=== PATIENT | female | born 1995 | race Caucasian/White ===

== ENCOUNTER 2025-01-12 09:22 | Emergency (ER) | payer OTHER, SELFPAY ==
--- OUTSIDE RECORDS SUMMARY | 2025-01-12 09:24 | XMS_ITS | Clinical Summary ---
Author Organization [employer] Address [address] [address] Care Team Providers Care Chimney Builder Brick Name Role Phone Needs Pcp, Assignment Primary Care Provider [phone] Source Comments You are receiving this document as you are listed as the primary care provider,follow-up provider, or the patient has been referred to you for consultation.This is in compliance with the Medicare and[facility] Cent[facility]aid EHR Incentive Program,which states Providers who transition their patient to another setting of careor provider of care or refers their patient to another provider of care shouldprovide summary care record for each transition of care or referral. [employer] Allergies Active Allergy Reactions Criticality Noted Date Comments Suzie (Diagnostic) Respiratory Distress High 2016 Denied having respiratory arrest, but stated it was respiratory distress Metoclopramide Anxiety 03/28/2017 Medications * This document contains information received from the source organization and may not represent a complete record from that organization. cholecalciferol (VITAMIN D3) 06490 UNITS capsule Take 1 Cap by mouth once every week. 4 Cap 7 Active Additional Information Patient not taking.Reported on 07/18/2017 multivitamin (THERAGRAN) tablet Take 1 Tab by mouth daily. 30 Tab 11 7 Active docusate sodium (COLACE) 100 MG capsuleIndicati ons:Alcohol use disorder, moderate, dependence (HRC) Take 1 Cap by mouth two times daily as needed. 100 Cap 6 7 Active traZODone (DESYREL) 50 MG tablet Take 1 Tab by mouth at bedtime as needed for Sleep. 30 Tab 3 7 Active Etonogestrel-Et hinyl Estradiol (NUVARING) 0.12-0.015 MG/24HR vaginal ring Insert 1 Each vaginally . Insert vaginally and leave in place for 3 consecutive weeks, then remove for 1 week. Active FLUoxetine (PROZAC) 40 MG capsule Take 2 Caps by mouth daily. 60 Cap 3 7 Active busPIRone (BUSPAR) 10 MG tablet Take 2 Tabs by mouth three times daily before meals. 180 Tab 3 7 Active amphetamine-dex troamphetamine (ADDERALL XR) 15 MG 24 hour release capsule Take 1 Cap by mouth daily. 30 Cap 7 Active Active Problems Problem Noted Date Diagnosed Date ADHD (attention deficit hype ractivity disorder), combined type 06/07/2017 Alcohol use disorder, moderate, dependence 04/28 PTSD (post-traumatic stress disorder) 04/25/2017 Bulimia nervosa 04/04/2017 Obesity (BMI 30.0-34.9) 04/04/2017 Moderate episode of recurrent major depressive d isorder 04/04/2017 MEGAN (generalized anxiety disorder) 04/04/2017 Laxative abuse 04/04/2017 Overview (07/05/2017): Laxative abuse - magnesium Vitamin D deficiency 04/04/2017 Resolved Problems Problem Noted Date Diagnosed Date Resolved Date Sprain of hand 09/14/2005 01/28/2007 Overview (07/05/2017): LW Onset: [id number] ; Sprain Hand Encounters Date Type Department Care Team Description 10/28/2024 nathaniel Jacob [address] [place] [address] from Last 3 Months Family History Medical History Relation Name Comments Alcohol/Drug Abuse Father Anxiety Father Bipolar Disorder Father Cancer, Other Father Depression Father Migraines Father Schizophrenia Father Suicide Father Alcohol/Drug Abuse Mother Bipolar Disorder Mother Depression Mother Obesity Mother Deafness Brother 1 Eczema Brother 2 Migraines Brother 3 Deafness Maternal Grandfather Cancer, Breast Maternal Grandmother Cancer, Ovary Maternal Grandmother Alcohol/Drug Abuse Paternal Grandfather Cancer, Lung Paternal Grandfather Dementia Paternal Grandfather Diabetes, Type II Paternal Grandfather Emphysema Paternal Grandfather Blindness Paternal Grandmother Cancer, Breast Paternal Grandmother Cancer, Ovary Paternal Grandmother Cataract Paternal Grandmother Domestic Violence Paternal Grandmother ADHD Sister 1 Alcohol/Drug Abuse Sister 2 Anxiety Sister 3 Bipolar Disorder Sister 4 Diabetes, Type II Sister 5 Domestic Violence Sister 6 Suicide Sister 7 Thyroid Disorder Sister 8 Relation Name Status Comments Father Mother Brother 1 Brother 2 Brother 3 Maternal Grandfather Maternal Grandmother Paternal Grandfather Paternal Grandmother Sister 1 Sister 2 Sister 3 Sister 4 Sister 5 Sister 6 Sister 7 Sister 8 Social History Tobacco Use Types Packs/Day Years Used Date Smoking Tobacco: Never Smokeless Tobacco: Never Alcohol Use Standard Drinks/Week Comments Yes 0 (1 standard drink = 0.6 oz pure alcohol) 3x per week, a glass of wine per occasion Comments No Sex and Gender Information Value Date Recorded Sex Assigned at Not on file Legal Sex Female 6:28 AM CDT Gender Identity Not on file Sexual Orientation Not on file Last Filed Vital Signs Vital Sign Reading Time Taken Comments Blood Pressure 114/74 07/18/2017 1:29 PM CDT Pulse 131 07/18/2017 1:29 PM CDT Temperature 37 C (98.6 F) 05/02/2017 5:50 AM CDT Respiratory Rate - - Oxygen Saturation 100% 08/12/2015 7:31 PM CDT Inhaled Oxygen Concentration - - Weight 94.7 kg (208 lb 12.4 oz) 07/18/2017 1:28 PM CDT Height 172.2 cm (5' 7.8) 06/13/2017 1:19 PM CDT Body Mass Index 31.94 06/13/2017 1:19 PM CDT Plan of Treatment Health Maintenance Due Date Last Done Comments Cervical Cancer Screening Due 1993 Hep C Screening (Preventive Services) 1993 DTaP/Tdap/Td (2 - Tdap) 02/05/2005 02/04/2005 HIV Screening (Preventive Services) 2009 Adult Preventive Visit 2011 HepB (1) 02/11/2012 COVID-19 Vaccine (2023-2 5 season) 2024 Influenza (#1) 2024 Zoster/Shingles (1 of 2) 2043 HPV Vaccine Addressed 01/29/2008 (Historical Completion), 09/24/2007 (Historical Completion), 07/18/2007 (Historical Completion) Overridden with the intention of not completing the topic HepA Aged Out No longer eligi ble based on patient's age to complete this topic Hib Aged Out No longer eligi ble based on patient's age to complete this topic IPV (Polio) Aged Out No longer eligi ble based on patient's age to complete this topic MCV4 Aged Out No longer eligi ble based on patient's age to complete this topic Meningococcal B Aged Out No longer el igible based on patient's age to complete this topic Pneumococcal Aged Out No longer eligi ble based on patient's age to complete this topic Advance Directives * Full Code (Latest Code Status on File) Date Activated Date Inactivated Comments 04/21/2017 1:05 PM 05/02/2017 12:52 PM Care Teams Chimney Builder Brick Relationship Specialty Start Date End Date Needs Pcp, [place] [address] PCP - General 03/23/17
--- OUTSIDE RECORDS SUMMARY | 2025-01-12 09:24 | XMS_ITS | Encounter Summary ---
Author Organization [facility] Address [address] [address] Care Team Providers Care Doll Wig Hackler Name Role Phone Needs Pcp, Assignment Primary Care Provider [phone] Encounter Details Date Type Department Care Team (Late st Contact Info) Description 10/28/2024 Miley [address] [place] [id number] Social History Tobacco Use Types Packs/Day Years [...] on file Sexual Orientation Not on file documented as of this encounter Progress Notes * FAMILY MEDICINEMODESTO PROVIDER - 10/28/2024 5:17 AM CST [facility] Treatment Plan Diagnosis Viral Upper Respiratory Infection Visit Date October 28, 2024 Judy Pena Date of : 89 Provider Mansi Gruber, Nurse Practitioner Note From Provider Pierce Kim, Thanks for using [facility]. See the attached plan. We need to get that inflammation down and mucus under control so you start feeling better. You??e on the right track with some of the over the counter medication. Let?? have you start the other tips listed too. I've included a cough capsule to use at night if needed. Warm tea, lemonade, or water with honey and lemon can also help soothe the cough. Steam, warm compresses to the sinuses and saline nasal spray can help the sinus congestion. Your symptoms should start to improve in the next 3-5 days. If they don?? please let us know. A typical viral illness lasts 10-14 days. Hope you feel better soon, [facility] Treatment Plan To get you feeling better, I recommend using specific [id number] medications to target yoursymptoms which may waste/materials exchange specialist time as your immune system fights off the virus and your body heals. Tavia sent a prescription for a cough suppressant to [facility]. Please note that the coughsuppressant should be kept out of reach as it?? safe for adults but not for children. If your symptomsare notimproving in about a week or you have questions, select Help to Request afollow-up, and we??l discuss next steps. Order(s) benzonatate 100 mg capsule Take 2 capsule oral at bedtime as needed for 10 days Note: Swallow capsules whole. Keep out of reach of children. Refills: None Sent To: [facility] [address] [place] [address] Treatment Plan Self Care Tip Topics Symptom Relief with Acetaminophen Promote Mucus Drainage Stay Hydrated Cough Relief Steam Therapy What to Expect The common cold and COVID-19 are typical examples of a VURI. Most people with VURIs experiencedifferent symptoms, which may include a low-grade fever, fatigue, sore throat, nasal congestion, sinuspressure and cough. Keep in mind that as your immune system fights off the virus, your symptoms can change and may get worsebefore they get better. Typical VURI symptoms will improve in about 7 to 10 days and fully clear upwithin 2 to 3 weeks. If your symptoms are not improving within this timeframe oryou have questions,select Help in your treatment plan to Request a follow-up, and we??l discuss nextsteps. What to Watch Out For If you need help managing the following symptoms, or they appear to be worsening, reach out to anurse practitioner by selecting Help on this treatment plan and then Request a follow-up. ??? Fever higher than 103.0 degrees Fahrenheit that doesn?? improve with medication ??? Worsening facial pain and pressure ??? Worsening throat pain ??? Worsening cough In other cases, it?? critical you get care right away. Visit an urgent care, go to an emergencycenter or call 911 immediately if you experience: ??? Difficulty breathing or speaking ??? Persistent chest pain or pressure ??? Wheezing ??? Severe constant dizziness or feeling too weak to stand My Conditions, Orders, Allergies as of October 28, 2024 Standard condition list Asthma ADHD (Attention Deficit Hyperactivity Disorder) Depression endometriosis Current orders benzonatate (benzonatate) estradiol (estradiol) Wellbutrin XL (bupropion HCl) Allergies Reglan (metoclopramide HCl), oral Dilaudid (hydromorphone), oral [facility] [employer] We are an online clinic open 05/06. If you have any questions or comments about this visit, please call or email [email or web address]. SUPERVISOR documented in this encounter Plan of Treatment Not on file documented as of this encounter Visit Diagnoses Diagnosis Acute upper respiratory infection, unspecified documented in this encounter Care Teams Doll Wig Hackler Relationship Specialty Start Date End Date Needs Pcp, Assignment [place], [place] [address] PCP - General 03/23/17 documented as of this encounter
--- OUTSIDE RECORDS SUMMARY | 2025-01-12 09:24 | XMS_ITS | Encounter Summary ---
Author Organization [facility] Address [address] [address] Care Team Providers Care House Admin Name Role Phone Needs Pcp, Assignment Primary Care Provider [phone] Encounter Details Date Type Department Care Team (Late st Contact Info) Description 06/15/2015 Scanned History External to URGENCY ROOM RECORDS Social History Tobacco Use Types Packs/Day Years Used Date Smoking Tobacco: Never Assessed Comments Unknown Sex and Gender Information Value Date Recorded Sex Assigned at Not on file Legal Sex Female 6:28 AM CDT Gender Identity Not on file Sexual Orientation Not on file documented as of this encounter Plan of Treatment Not on file documented as of this encounter Visit Diagnoses Not on filedocumented in this encounter Care Teams House Admin Relationship Specialty Start Date End Date Needs Pcp, [place] [address] PCP - General 03/23/17 documented as of this encounter
--- OUTSIDE RECORDS SUMMARY | 2025-01-12 09:24 | XMS_ITS | Clinical Summary ---
Author Organization [facility] Address [address] [place] [address] Care Team Providers Care Art Consultant Name Role Phone Unavailable Primary Care Provider Unavailabl e Source Comments Patient records contain information from all sites at [facility]. For routine questions regarding patient records, call [phone] during business hours, M-F 8:00 AM - 5:00 PM Central Time. Record requests for emergency care only can be directed to [phone] at any time.[facility] Allergies Active Allergy Reactions Criticality Noted Date Comments Adhesive Tape-Silicones Rash 12/17/2020 Skin tearing Hydromorphone Nausea Only,Shortnes s of breath (Reselect Reaction) High 02/18/2016 Metoclopramide Hcl Anxiety,Other (see comments),Shortness of breath (Reselect Reaction) High 11/15/2016 Medications multivit-minera ls/folic acid (MULTIVITAMIN GUMMIES ORAL) Active estradioL (ESTRACE) 0.1 mg/g (0.01%) vaginal creamIndication s:Menopause Surgical Insert 1 gram at bedtime for two weeks; then 1 gram at bedtime twice a week. 42.5 g 3 4 Active buPROPion XL (WELLBUTRIN XL) 300 mg 24 hr tabletIndicatio ns:Depression Major Recurrent Partial Remission (HCC) Take 1 tablet (300 mg total) by mouth every morning. 30 tablet 1 4 Active estradioL (Kathryn) 0.1 mg/24 hr patchIndication s:Menopause Surgical PLACE ONE PATCH TOPICALLY ON THE SKIN TWICE A WEEK. 24 patch 5 4 Active Family History Medical History Relation Name Comments Alcohol abuse Father Erik Depression Father Erik Psychiatric Father Erik Suicide Attempts Father Erik Completed a ttempt Breast cancer Father's Sister 1 Brandi Ovarian cancer Father's Sister 2 Cara Alcohol abuse Mother Florence Depression Mother Florence Obesity Mother Florence Alcohol abuse Paternal Grandfather Erik ADD Sister 1 Ashlyn Alcohol abuse Sister 1 Ashlyn Depression Sister 1 Ashlyn Learning disorder Sister 1 Ashlyn Obesity Sister 1 Ashlyn Other cancer Sister 1 Ashlyn Cervical Cancer Suicide Attempts Sister 1 Ashlyn Alcohol abuse Sister 2 Jolein Asthma Sister 2 Jolein Depression Sister 2 Jolein Gestational diabetes Sister 2 Jolein Obesity Sister 2 Jolein Psychiatric Sister 2 Jolein Suicide Attempts Sister 2 Jolein Relation Name Status Comments Father Erik Father's Sister 1 Brandi Father's Sister 2 Cara Mother Florence Paternal Grandfather Erik Sister 1 Ashlyn Sister 2 Jolein Social History Tobacco Use Types Packs/Day Years Used Date Smoking Tobacco: Never Smokeless Tobacco: Never Tobacco Cessation:Counseling Given: Not Answered Alcohol Use Standard Drinks/Week Comments Never 0 (1 standard drink = 0.6 oz pur e alcohol) [facility] Utilities Answer Date Recorded In the past 12 months has e [employer], gas, oil, or water [employer] threatened to shut off services in your home? No 03/07/2024 Exercise Vital Sign Answer Date Recorde d On average, how many days pe r week do you engage in moderate to strenuous exercise (like a brisk walk)? 3 days 03/07/2024 On average, how many minutes do you engage in exercise at this level? 30 min 03/07/2024 Hunger Vital Sign Answer Date Recorded Within the past 12 months, y ou worried that your food would run out before you got the money to buy more. Sometimes true Within the past 12 months, t he food you bought just didn't last and you didn't have money to get more. Never true PRAPARE - Transportation Answer Date Re corded In the past 12 months, has l ack of transportation kept you from medical appointments or from getting medications? No 02/12 In the past 12 months, has l ack of transportation kept you from meetings, work, or from getting things needed for daily living? No 03/07/2024 Nutrition Answer Date Recorded On average, how many serving s of fruits and vegetables do you eat per day (serving size is equal to 1 cup or approximately the size of a tennis ball)? 3-5 03/07/2024 Dental Answer Date Recorded Dental: Regular Dentist Yes 03/07/20 Employment Answer Date Recorded Employment status Employed and actively working without restrictions 03/07/2024 Housing Stability Answer Date Recorded What is your living situation today? I have a [facility] place to live 03/07/2024 Comments No Sex and Gender Information Value Date Recorded Sex Assigned at Female 03/07/2024 6:46 AM CDT Legal Sex Female 8:48 AM CDT Gender Identity Female 03/07/2024 6:46 AM CDT Sexual Orientation Bisexual 03/07/2024 6: 46 AM CDT Last Filed Vital Signs Vital Sign Reading Time Taken Comments Blood Pressure 109/75 04/23/2024 11:08 AM CDT Pulse 83 03/07/2024 8:55 AM CDT Temperature - - Respiratory Rate - - Oxygen Saturation - - Inhaled Oxygen Concentration - - Weight 88.1 kg (194 lb 3.6 oz) 04/23/2024 11:08 AM CDT Height - - Body Mass Index - - Plan of Treatment Health Maintenance Due Date Last Done Comments HIV Screening 1993 Hepatitis B Screening 1993 Hepatitis C Screening 1993 COVID-19 Vaccine ( season) 2024 08/03/2022, 10/26/2021, 02/28/2021, Additional history exists Influenza Vaccine (#1) 2024 , 07/26/2018, 07/19/2017 Depression Screening (Annual PHQ-2) 11/13/2024 DTaP,Tdap,and Td Vaccines (8 - Td or Tdap) 01/27/2028 01/26/2018, 07/31/2011, 04/24/1998, Additional history exists IPV Vaccines Completed 04/24/1998, 05/13, 1993 HPV Vaccines Completed 06/24/2008, 01/11, 09/24/2007, Additional history exists Pneumococcal vaccine (0-49 years) Aged Out 08/03/2017 No longer eligible based on patient's age to complete this topic Hepatitis B Vaccines Completed 11/09/2022, 1993, 1993, Additional history exists Insurance [facility]
--- OUTSIDE RECORDS SUMMARY | 2025-01-12 09:24 | XMS_ITS | Encounter Summary ---
Author Organization [facility] Address [address] [address] Care Team Providers Care Injection Specialist Name Role Phone Needs Pcp, Assignment Primary Care Provider [phone] Encounter Details Date Type Department Care Team (Late st Contact Info) Description 06/15/2015 Emergency Room External to [facility] ABD PAIN Social History Tobacco Use Types Packs/Day Years [...] on filedocumented in this encounter Care Teams Injection Specialist Relationship Specialty Start Date End Date Needs Pcp, [place] [address] PCP - General 03/23/17 documented as of this encounter
--- OUTSIDE RECORDS SUMMARY | 2025-01-12 09:24 | XMS_ITS | Encounter Summary ---
Author Organization [facility] Address [address] [address] Care Team Providers Care Physician Advisor Name Role Phone Needs Pcp, Assignment Primary Care Provider [phone] Encounter Details Date Type Department Care Team (Late st Contact Info) Description 06/14/2015 Emergency Room External to [facility] SUPRAPUBIC PAIN AND VAGINAL PROBLEM Social History Tobacco Use Types Packs/Day Years [...] on filedocumented in this encounter Care Teams Physician Advisor Relationship Specialty Start Date End Date Needs Pcp, [place] [address] PCP - General 03/23/17 documented as of this encounter
--- OUTSIDE RECORDS SUMMARY | 2025-01-12 09:24 | XMS_ITS | Clinical Summary ---
Author Organization [employer] [facility] [employer] [facility] Address [facility] [place] [address] Care Team Providers Care Merchandising Consultant Name Role Phone Alicia Lawton MD Unavailable [phone] Amanda Marina Primary Care Provider [phone] Allergies Active Allergy Reactions Criticality Noted Date Comments Adhesive Tape-Silicones Rash 12/17/2020 Skin tearing Hydromorphone Shortness Of Breath,Nausea Only High 02/18/2016 Metoclopramide Hcl Anxiety,Shortness Of Breath High 11/15/2016 Medications dextroamphetamine- amphetamine (ADDERALL) 20 mg tablet Take 20 mg by mouth 2 times daily 10/03/20 20 Active cloNIDine HCL (CATAPRES) 0.1 mg tablet Take 1 tablet by mouth at bedtime. 11/14/19 21 Active buPROPion (WELLBUTRIN XL) 150 mg Extended-Release tablet Take 1 Tablet by mouth once daily. Take with 300mg tab for a total of 450mg daily 07/15/20 22 Active busPIRone (BUSPAR) 30 mg tablet Take 1 Tablet by mouth two times daily. 07/15/20 22 Active buPROPion (WELLBUTRIN XL) 300 mg Extended-Release tablet Take 1 Tablet (300 mg) by mouth once daily. Take with the 150 mg. Total daily dose 450 mg. 0 08/03/20 22 Active albuterol HFA (PRO-AIR; VENTOLIN; PROVENTIL) 90 mcg/actuation inhalerIndications :Mild intermittent asthma without complication INHALE 1 TO 2 PUFFS BY MOUTH EVERY 4 HOURS NEEDED FOR SHORTNESS OF BREATH 8.5 g 09/29/20 23 Active buPROPion (WELLBUTRIN XL) 150 mg Extended-Release tablet Take by mouth. 09/22/20 22 Active ondansetron (ZOFRAN ODT) 4 mg disintegrating tabletIndications: Nausea Place 1 Tablet (4 mg) on the tongue every 8 hours if needed for Nausea/Vomiting. 15 Tablet 02/23/20 24 Active acetaminophen (TYLENOL) 325 mg tabletIndications: Acute post-operative pain Take 2 Tablets (650 mg) by mouth every 4 hours if needed (mild pain). Max acetaminophen dose: 4000mg in 24 hrs. 30 Tablet 02/24/20 24 Active oxyCODONE (ROXICODONE) 5 mg immediate release tabletIndications: Acute post-operative pain Take 1-2 Tablets (5-10 mg) by mouth every 4 hours if needed for Pain. 12 Tablet 02/24/20 24 Active ibuprofen (ADVIL; MOTRIN) 200 mg tabletIndications: Acute post-operative pain Take 2-4 Tablets (400-800 mg) by mouth every 6 hours if needed for Pain (mild pain). 100 Tablet 02/24/20 24 Active norethin mari-eth estrad-fe, 1-20 mg-mcg, (LOESTRIN FE 12/02; JUNEL FE 12/02) tabletIndications: Surgical menopause Take one tablet daily. Skip the placebo pills 28 Tablet 4 02/24/20 24 Active Active Problems Problem Noted Date Diagnosed Date PTSD (post-traumatic stress disorder) 08/03/2022 Depression 01/14/2010 Overview (03/30/2011): Hospitalized in 03/2011 due to ativan OD and SI ADHD (attention deficit hyperactivity disorder) 01/14/2010 Mild intermittent asthma without complication Anxiety 01/14/2010 Resolved Problems Problem Noted Date Diagnosed Date Resolved Date Bulimia nervosa 08/03/2022 10/19/2023 Overview (08/03/2022): Went to [place] for treatment, 2017. Now in remission. Routine health maintenance 04/26/2011 0 08/03/2022 UTI in , antepartum , second trimester 08/03/2022 Immunizations Name Administration Dates Next Due COVID-19 vaccine (Giveo-Bio NTech 30mcg/0.3mL) 12YO+ BIVALENT PF, MDV 08/03/2022 DTP 04/24/1998, 4,1993,06/15,1993 Hepatitis B, Unspecified 1993,1993,0 1993 Human Papilloma Virus Vaccine 06/24/2008 ,01/29/2008,09/24/2007,07/18 Influenza Virus, Unspecified 07/19/2017 Influenza, IIV4 08/03/2022,07/26/2018 Influenza, IIV4 (=>6mos) MDV 07/19/2017 MMR 04/13/2018,04/24/1998,05/23/1994 Meningococcal Vaccine (Menomune) 01/29/2008 Pneumococcal Poly,23-Valent (Pneumovax) 08/03/2017 Polio Virus, Unspecified 04/24/1998,05/23/1994,0 1993 Td (Age >=7 Years) 02/04/2005 Tdap 01/26/2018,07/31/2011 Varicella Vaccine 10/04/1999 Family History Medical History Relation Name Comments No Known Problems Brother 1 No Known Problems Brother 2 Alcoholism Father Depression Father Leukemia Father Alcoholism Mother Depression Mother Cancer-breast Paternal Aunt 1 in her 40s Cancer-ovarian Paternal Aunt 1 Cancer-breast Paternal Aunt 2 in her 40s Cervical cancer Sister 1 Gestational diabetes Sister 2 Anesthesia Problem No Family History Blood Disease No Family History Relation Name Status Comments Brother 1 Alive Brother 2 Alive Father Mother Paternal Aunt 1 Paternal Aunt 2 Sister 1 Alive Sister 2 Alive Social History Tobacco Use Types Packs/Day Years Used Date Smoking Tobacco: Never Smokeless Tobacco: Never Tobacco Cessation:Counseling Given: Yes Comments:no exposure Alcohol Use Standard Drinks/Week Comments Not Currently 0 (1 standard drink = 0.6 oz pur e alcohol) PHQ-2 Answer Date Recorded PHQ-2 TOTAL SCORE 0 10/19/2023 Social Connections Answer Date Recorded Frequency of Communication with Friends and Fami ly Not on file 11/13/2021 Financial Resource Strain Answer Date R ecorded Difficulty of Paying Living Expenses Not on file 11/13/2021 Difficulty of Paying Living Expenses Not on file 11/13/2021 Interpersonal Safety Answer Date Record ed Are you being hit, kicked, p ushed or yelled at (see row info)? 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 Gender Identity Not on file Sexual Orientation Not on file Occupation Industry Job Start Date Job End Date Not on file Not on file Not on file Not on file Obstetrics History Para Term AB IAB SAB Ectopic Multiple Livin g Live Births 3 1 0 0 1 0 1 0 Date Outcome GA Total Labor Labor/2nd/3rd Weight Sex Type Anes PTL Aurea A1 A5 Name Clin SAB Para Last Filed Vital Signs Vital Sign Reading Time Taken Comments Blood Pressure 120/69 02/24/2024 12:28 PM CDT Pulse 71 02/24/2024 12:28 PM CDT Temperature 36.6 C (97.8 F) 02/24/2024 11:15 AM CDT Respiratory Rate 16 02/24/2024 12:28 PM CDT Oxygen Saturation 97% 02/24/2024 12:28 PM CDT Inhaled Oxygen Concentration - - Weight 89.5 kg (197 lb 6.4 oz) 02/24/2024 4:53 A M CDT Height 175.3 cm (5' 9) 02/24/2024 4:53 AM CDT Body Mass Index 29.15 02/24/2024 4:53 AM CDT Plan of Treatment Health Maintenance Due Date Last Done Comments HIV for age 15-65 02/11/2008 COVID-19 vaccine series ( season) 2024 08/03/2022, 10/26/2021, 02/28/2021, Additional history exists Influenza for age 9-49 07/14/2024 , 07/26/2018, 07/19/2017, Additional history exists BMI (ht and wt on same day) for age 18+ 10/19/2024 10/19/2023, 08/30/2022, 08/03/2022, Additional history exists Depression screening for age 12+ 10/19/2024 10/19/2023, 08/03/2022 Tetanus booster 01/27/2028 01/26/2018, 07/14, 02/04/2005 Pneumococcal series for age 6-49 Aged Out 08/03/2017 No longer eligible based on patient's age to complete this topic Tdap Completed 01/26/2018, 07/31/2011 Hepatitis C screening for age 18-79 Completed 08/03/2022 Procedures Procedure Name Priority Date/Time Associated Diagnosis Comments ANTI HCV Routine 08/03/2022 10:17 AM CDT Need for hepatitis C screening test from Last 3 Months or Most Recently Relevant to Health Maintenance Results * ANTI HCV (08/03/2022 10:17 AM CDT) HEPATITIS C ANTIBODY Non-React pablo Non-React pablo 08/04/2022 6:42 PM CDT [facility] Comment:Antibodies to HCV no t detected; does not exclude the possibility of exposure to HCV. Blood BLOOD SPECIMEN / Unknown Venipuncture / Unknown 08/03/2022 10:17 AM CDT 08/03/2022 10:17 AM CDT us Vikki LEWIS SEND OUTS Final Resu lt [facility] [address] [place] [address], [place] from Last 3 Months or Most Recently Relevant to Health Maintenance Insurance [place] CARE [facility] INDIVIDUAL AND FAMILY PLANS Advance Directives * Full Code (Latest Code Status on File) Date Activated Date Inactivated Comments 02/24/2024 8:30 AM 02/24/2024 3:44 PM Question Answer Comments Code Status Discussion: Other * Full Code Date Activated Date Inactivated Comments 12/18/2020 7:00 AM 12/18/2020 1:18 PM Question Answer Comments Code Status Discussion: Discussed * Full Code Date Activated Date Inactivated Comments 12/26/2017 7:33 PM 12/27/2017 1:08 AM Care Teams Merchandising Consultant Relationship Specialty Start Date End Date Amanda Marina PA [address] [place] [address] PCP - General Physician Sand Temperer 10/19/23 Alicia Lawton MD [address] [phone] Obstetrics and Gynecology 10/15/20
[2025-01-12 09:28] VITALS: BP 116/82; PULSE 77; RESP 20; TEMP 37.1; O2SAT 100; BMI 29.9
[2025-01-12] MEDS: 0.9 % SODIUM CHLORIDE 1000 ml 1,000 ML IV (10:14)
[2025-01-12 10:15] VITALS: O2SAT 96
[2025-01-12] MEDS: ONDANSETRON 2 MG/ML inj 4 MG IVP (10:15)
[2025-01-12] MEDS: KETOROLAC 30 MG/ML inj IVP (10:16)
[2025-01-12] MEDS: LORazepam 2 MG/ML inj 0.5 MG IVP (10:17)
--- NOTE | 2025-01-12 10:17 | ED.GENADULT ---
HPI - General Adult General Chief complaint: Headache/Migraine Stated complaint: R side going numb Time Seen by Provider: 01/12/25 09:36 Source: patient Mode of arrival: ambulatory Limitations: no limitations History of Present Illness HPI narrative: 29-year-old female history of migraine headaches, anxiety presenting today with migraines and anxiety. Patient woke up this morning had a migraine. She states that generally she can take energy drink and her migraine goes away but today it continued. This caused significant amount of anxiety for her. Both of her hands started tingling. Her smart watch then told her that her heart rate was very low in the 40s. Patient was concerned that she was going to so she comes in for evaluation. Her headache is very usual in its location and severity. She denies any neurologic deficits. She is not nauseated, no vomiting. No word finding difficulty, no speech deficits. No changes in her vision, no ringing in her ears. Patient states that she is under a lot of stress right now. Becomes very tearful when she talks about her life stressors. Patient is on Wellbutrin and clonidine, estrogen. Past surgical history includes a hysterectomy for endometriosis. Related Data Allergies Allergy/AdvReac Type Severity Reaction Status Date / Time metoclopramide (From Reglan) AdvReac Severe I wanted Verified 01/12/25 09:32 to kill myself hydromorphone (From Dilaudid) AdvReac Intermediate shortness Verified 01/12/25 09:32 of breath Review of Systems Status of ROS: Reports: 10 or more systems reviewed and unremarkable except as noted in History and below PFSH PFS Social History Smoking Status: Never smoker How often do you have a drink containing alcohol: never AUDIT-C Alcohol total score: 0 Non-prescribed substance use: marijuana (any form) Non-prescribed substance use details: marijuana gummies or drinks occ Exam Narrative: Exam Narrative: Well-nourished well-developed patient, tearful. Alert and oriented. Answers questions appropriately. Thoughts are goal oriented and rational. No tangential or magical thinking noted. Patient speaks in full sentences without needing to catch her breath. HEENT: Normocephalic atraumatic. Pupils are equally round reactive to light. Extraocular muscles are intact. Conjunctivae are moist without any icterus noted. Moist mucous membranes. Posterior pharynx is normal. Neck is soft. Cardiovascular: Heart is regular rate and rhythm S1 and S2 are present without any murmurs. Lungs: Clear to auscultation bilaterally no wheezes rhonchi or rales are appreciated. Patient takes deep breaths without any discomfort. Abdomen: Soft and nontender nondistended with normal bowel sounds. Skin: Well perfused without any obvious rashes. Const: Vital Signs, click to edit/add: Vital Signs - 24 hr 01/12/25 09:28 01/12/25 10:22 Temperature 98.7 F Pulse Rate [Pulse Oximeter] 77 53 L Respiratory Rate 20 16 Blood Pressure [Ri t Upper Arm] 116/82 102/72 Pulse Oximetry 100 96 Oxygen Delivery Me thod Room Air Room Air Course Course ED Course: IV is established and patient received a L of normal saline, IV Zofran, IV Toradol, and IV Ativan. Patient feels better after treatment. Her headache improved. She does still feel somewhat anxious. We discussed checking in with her therapist and patient is in agreement with this plan. Vital Signs Vital signs: Initial Vital Signs Temperature 98.7 F 01/12/25 09:28 Temperature Source Temporal Artery Scan 01/12/25 09:28 Pulse Rate 77 01/12/25 09:28 Pulse Rhythm Regular 01/12/25 09:28 Respiratory Rate 20 01/12/25 09:28 Blood Pressure 116/82 01/12/25 09:28 Blood Pressure Mean 93 01/12/25 09:28 Blood Pressure Position Sitting 01/12/25 09:28 Pulse Oximetry 100 01/12/25 09:28 Oxygen Delivery Method Room Air 01/12/25 09:28 Vital Signs Temperature 98.7 F 01/12/25 09:28 Pulse Rate 77 01/12/25 09:28 Respiratory Rate 20 01/12/25 09:28 Blood Pressure 116/82 01/12/25 09:28 Pulse Oximetry 100 01/12/25 09:28 Oxygen Delivery Method Room Air 01/12/25 09:28 Temperature 98.7 F 01/12/25 09:28 Pulse Rate 53 L 01/12/25 10:22 Respiratory Rate 16 01/12/25 10:22 Blood Pressure 102/72 01/12/25 10:22 Pulse Oximetry 96 01/12/25 10:22 Oxygen Delivery Method Room Air 01/12/25 10:22 Medications Administered Medications: Discontinued Medications Generic Name Dose Route Start Last Admin Trade Name Bertha PRN Reason Stop Dose Admin Sodium Chloride 1,000 mls @ 1,000 mls/hr 01/12/25 10:00 01/12/25 11:05 0.9 % Sodium Chloride 1000 Ml IV 01/12/25 10:59 Infused .Q1H MYRON Infusion Ketorolac Tromethamine 30 mg 01/12/25 09:48 01/12/25 10:16 Ketorolac 30 Mg/Ml Inj IVP 01/12/25 09:49 30 mg ONCE ONE Administration Lorazepam 0.5 mg 01/12/25 09:48 01/12/25 10:17 Lorazepam 2 Mg/Ml Inj IVP 01/12/25 09:49 0.5 mg ONCE ONE Administration Ondansetron HCl 4 mg 01/12/25 09:48 01/12/25 10:15 Ondansetron 2 Mg/Ml Inj IVP 01/12/25 09:49 4 mg ONCE ONE Administration Medical Decision Making MDM Narrative Medical decision making narrative: 29-year-old female with migraine headache and anxiety. Treated per above. Discharge Plan Discharge Clinical Impression: Migraine, Anxiety Patient Disposition: Home, Self-Care Condition: Improved Additional Instructions: Follow-up with your doctor as needed. Recommend checking in with your therapist this week. Stand Alone Forms: [employer] Info Instructions
[2025-01-12 10:22] VITALS: BP 102/72; PULSE 53; RESP 16; O2SAT 96
--- OUTSIDE RECORDS SUMMARY | 2025-01-12 10:25 | XMS_ITS | Clinical Summary ---
Author Organization [employer] [facility] [employer] Address [facility] [place] [address] Care Team Providers Care Principal Law Clerk Name Role Phone Alicia Lawton MD Unavailable [phone] Amanda Marina Primary Care Provider [phone] Allergies Active Allergy Reactions Criticality Noted Date [...] nervosa 08/03/2022 10/19/2023 Overview (08/03/2022): Went to [place] for treatment, 2017. Now in remission. 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 Blood BLOOD SPECIMEN / Unknown Venipuncture / Unknown 08/03/2022 10:17 AM CDT 08/03/2022 10:17 AM CDT us Vikki LEWIS SEND OUTS Final Resu lt [facility] [address] [place] [address], [place] from Last 3 Months or Most Recently Relevant to Health Maintenance Insurance [place] CARE [facility] INDIVIDUAL AND FAMILY PLANS Advance Directives [...] 7:33 PM 12/27/2017 1:08 AM Care Teams Principal Law Clerk Relationship Specialty Start Date End Date Amanda Marina PA [address] [facility] [place] [address] PCP - General Physician Elevator Operator Service 10/19/23 Alicia Lawton MD [address] [phone] Obstetrics and Gynecology 10/15/20
--- OUTSIDE RECORDS SUMMARY | 2025-01-12 10:25 | XMS_ITS | Encounter Summary ---
Author Organization [employer] Address [address], [place] [address] Care Team Providers Care Facility Sales And Admin Name Role Phone Needs Pcp, Assignment Primary Care Provider [phone] Encounter Details Date Type Department Care Team (Late st Contact Info) Description 10/28/2024 M[address] [place] [id number] Social History Tobacco Use Types Packs/Day Years [...] you feeling better, I recommend using specific [id number] medications to target yoursymptoms which may change house attendant time as your immune system fights off the virus and your body heals. Tavia sent a prescription for a cough suppressant to [facility]. Please note that the coughsuppressant should [...] reach of children. Refills: None Sent To: [facility] [address] [place] [address] Treatment Plan Self Care Tip Topics Symptom [...] Dilaudid (hydromorphone), oral [facility] Information [facility] We are an online clinic open 05/06. If you have any questions or comments about this visit, please call or email [email or web address] FILLER MACHINE WRAPPER LAYER documented in this encounter Plan of Treatment Not on file documented as of this encounter Visit Diagnoses Diagnosis Acute upper respiratory infection, unspecified documented in this encounter Care Teams Facility Sales And Admin Relationship Specialty Start Date End Date Needs Pcp, Assignment [place], [place] [address] PCP - General 03/23/17 documented as of this encounter
--- OUTSIDE RECORDS SUMMARY | 2025-01-12 10:25 | XMS_ITS | Encounter Summary ---
Author Organization [facility] Address [address] [address] Care Team Providers Care Securities Settlement Processor Name Role Phone Needs Pcp, Assignment Primary Care Provider [phone] Encounter Details Date Type Department Care Team [...] on filedocumented in this encounter Care Teams Securities Settlement Processor Relationship Specialty Start Date End Date Needs Pcp, [place] [address] PCP - General 03/23/17 documented as of this encounter
--- OUTSIDE RECORDS SUMMARY | 2025-01-12 10:25 | XMS_ITS | Clinical Summary ---
Author Organization [employer] Address [address] [address] Care Team Providers Care Motel Manager Name Role Phone Needs Pcp, Assignment Primary Care Provider [phone] Source Comments You are receiving this document as you are listed as the primary care provider,follow-up provider, or the patient has been referred to you for consultation.This is in compliance with the Medicare andOhiohealth Doctors Hospitalcaid EHR Incentive Program,which states Providers who transition their patient to another setting of careor provider of care or refers their patient to another provider of care shouldprovide summary care record for each transition of care or referral. [employer] Allergies Active Allergy Reactions Criticality Noted Date Comments Suzie (Diagnostic) Respiratory Distress High 2016 Denied having respiratory arrest, but stated it was respiratory distress Metoclopramide Anxiety 03/28/2017 Medications * This document contains information received from the source organization and may not represent a complete record from that organization. cholecalciferol (VITAMIN D3) 61175 UNITS capsule Take 1 Cap by mouth [...] hand 09/14/2005 01/28/2007 Overview (07/05/2017): LW Onset: [id number] ; Sprain Hand Encounters Date Type Department Care Team Description 10/28/2024 nathaniel Jacob [address] [place] [address] from Last 3 Months Family [...] 1:05 PM 05/02/2017 12:52 PM Care Teams Motel Manager Relationship Specialty Start Date End Date Needs Pcp, [place] [address] PCP - General 03/23/17
--- OUTSIDE RECORDS SUMMARY | 2025-01-12 10:25 | XMS_ITS | Encounter Summary ---
Author Organization [facility] Address [address], [place] [address] Care Team Providers Care Master Chef Name Role Phone Needs Pcp, Assignment Primary Care Provider [phone] Encounter Details Date Type Department Care Team [...] on filedocumented in this encounter Care Teams Master Chef Relationship Specialty Start Date End Date Needs Pcp, [place] [address] PCP - General 03/23/17 documented as of this encounter
--- OUTSIDE RECORDS SUMMARY | 2025-01-12 10:25 | XMS_ITS | Encounter Summary ---
Author Organization [facility] Address [address], [place] [address] Care Team Providers Care Phlebotomist Medical Lab Assistant Name Role Phone Needs Pcp, Assignment Primary Care Provider [phone] Encounter Details Date Type Department Care Team [...] on filedocumented in this encounter Care Teams Phlebotomist Medical Lab Assistant Relationship Specialty Start Date End Date Needs Pcp, [place] [address] PCP - General 03/23/17 documented as of this encounter
[2025-01-12 11:15] VITALS: BP 103/63; PULSE 55; RESP 16; O2SAT 97
== END 2025-01-12 11:33 | disposition home or self-care (01) ==
PROVIDERS: Emergency Provider Family Medicine
DX: G43.909 Migraine, unspecified, not intractable, without status migrainosus (principal); F41.9 Anxiety disorder, unspecified
CPT/HCPCS: 94761; 96374; 96375; 99284; J1885; J2060; J2405; J7030